=== PATIENT | male | born 1975 | race Caucasian/White ===

== ENCOUNTER 2021-10-09 18:46 | Inpatient (IN) | payer BC ==
[~2021-10-09] VITALS: Ht 175.3 cm; Wt 141.1 kg
[2021-10-09 19:43] LABS: HEMOGLOBIN 14.3 gm/dl (14.0-17.5); RED BLOOD COUNT 5.12 M/UL (4.20-5.50); WHITE BLOOD COUNT 5.4 K/UL (4.5-11.0)
[2021-10-09 19:50] LABS: BUN/CREATININE RATIO 11 (0-10)
[2021-10-10 06:34] LABS: HEMOGLOBIN 13.7 gm/dl (14.0-17.5); RED BLOOD COUNT 4.99 M/UL (4.20-5.50); WHITE BLOOD COUNT 4.5 K/UL (4.5-11.0)
[2021-10-10 06:52] LABS: BUN/CREATININE RATIO 13 (0-10)
[2021-10-10] MEDS ORDERED: OZEMPIC0.25 MG/0. SQ (10:53)
[2021-10-10] MEDS ORDERED: DOXYCYCLINE HY100 M2 PO (10:53)
[2021-10-10] MEDS ORDERED: MELOXICAM7.5 MG PO (10:54)
[2021-10-10] MEDS ORDERED: ATORVASTATIN CA20 MG PO (10:54)
[2021-10-10] MEDS ORDERED: WELLBUTRIN XL150 MG PO (10:54)
[2021-10-10] MEDS ORDERED: HYDROXYZINE HCL25 MG PO (10:54)
[2021-10-10] MEDS ORDERED: UBRELVY100 MG PO (10:55)
[2021-10-10] MEDS ORDERED: TYLENOL EXTRA500 MG PO (10:56)
[2021-10-10] MEDS ORDERED: METFORMIN HCL500 MG PO (10:56)
[2021-10-11 06:31] LABS: RED BLOOD COUNT 5.1 M/UL (4.20-5.50); WHITE BLOOD COUNT 4.7 K/UL (4.5-11.0)
[2021-10-11 13:51] LABS: BUN/CREATININE RATIO 10 (0-10)
[2021-10-12 06:01] LABS: HEMOGLOBIN 13.3 gm/dl (14.0-17.5); RED BLOOD COUNT 4.91 M/UL (4.20-5.50); WHITE BLOOD COUNT 3.8 K/UL (4.5-11.0)
[2021-10-12 06:23] LABS: BUN/CREATININE RATIO 14 (0-10)
[2021-10-12] MEDS ORDERED: CEPHALEXIN500 MG PO (12:31)
[2021-10-12] MEDS ORDERED: BACTRIM DS TAB1 EACH PO (12:31)
== END 2021-10-12 16:09 | disposition home or self-care (01) | DRG 603 ==
LOC: ER1 18:46 → MED SURG 4 21:12 → CDU 21:12 → MED SURG 4 22:38
PROVIDERS: Emergency Medicine; Internal Medicine; ADMIT Internal Medicine
DX: L03.116 Cellulitis of left lower limb (principal); E66.2 Morbid (severe) obesity with alveolar hypoventilation; Z68.42 Body mass index [BMI] 45.0-49.9, adult; E11.9 Type 2 diabetes mellitus without complications; Z20.822 Contact with and (suspected) exposure to COVID-19; G43.909 Migraine, unspecified, not intractable, without status migrainosus; Z83.3 Family history of diabetes mellitus
CPT/HCPCS: 80048; 80053; 80202; 80307; 82962; 83036; 83735; 84100; 84439; 84443; 85025; 85027; 85652; 86140; 87040; 87081; 93005; 96365; 96368; 96375; 99284; J0692; J0780; J1650; J1885; J2185; J3370; J7030; J7070